=== PATIENT | female | born 1995 | race Caucasian/White ===

== ENCOUNTER 2019-05-16 00:31 | Inpatient (IN) | payer SELFPAY ==
[~2019-05-16] VITALS: Ht 152.4 cm; Wt 81.0 kg
[2019-05-16] VITALS (303 sets, daily range): BP systolic 94–115; BP diastolic 51–72; PULSE 63–74; TEMP 97–98.9; O2SAT 95–100
[2019-05-16 01:03] LABS: BASO % 0.3 % (0.0-2.0); EOS % 0.3 % (0-4.0); GRAN # 8.5 (1.4-6.5); GRAN % 65.9 % (42.2-75.2); HEMATOCRIT 38.1 % (37.0-47.0); HEMOGLOBIN 12.4 g/dl (12.5-16.0); LYMPH # 3.1 (1.2-3.4); LYMPH % 24.4 % (20.0-51.0); MEAN CELL VOLUME 90 fl (80.0-100.0); MEAN CORPUSCULAR HEMOGLOBIN 29 pg (27.0-31.0); MEAN CORPUSCULAR HGB CONC 33 g/dl (33.0-37.0); MEAN PLATELET VOLUME 10.9 fl (7.4-10.4); MONO # 1.1 (0.1-0.6); MONO % 8.7 % (1.7-9.3); PLATELET COUNT 278 K/mm3 (130-400); RED BLOOD COUNT 4.23 M/mm3 (4.10-5.30); REDCELL DISTRIBUTION WIDTH-CV 12.7 % (11.5-14.5)
[2019-05-16 01:17] LABS: ALBUMIN 4.2 gm/dL (3.5-5.0); BILIRUBIN,TOTAL 0.4 mg/dL (0.0-1.0); C-REACTIVE PROTEIN 1.3 mg/dL (0.0-0.9); CALCIUM 8.7 mg/dL (8.4-10.2); CREATININE, serum 0.62 (0.52-1.25); TOTAL PROTEIN 8.2 gm/dL (6.4-8.2)
--- NOTE | 2019-05-16 03:14 | NUR ---
Racemic Epi nebulizer discontinued after 2.5 minutes due to bilateral leg tremors and increasing heart rate. Pt states that she feels the treatment may have made a slight improvement in the amount of air she is getting. Cool mist humidifier via face tent on RA applied following neb.
--- NOTE | 2019-05-16 03:54 | NUR ---
0241 - REPORT RECEIVED FROM WILMAN COLON. 0250 - PT ARRIVED IN UNIT VIA STRETCHER, ABLE TO TRANSFER SELF TO BED INDEPENDENTLY. PT ALERT AND ORIENTED X 4, AUDIBLE STRIDOR FROM THROAT COULD BE HEARD, LUNGS ARE CLEAR, DENIES ANY PAIN AT THIS TIME AND VSS. NOREEN AT BEDSIDE, ORIENTED TO VISITATION POLICY AND VERBALIZED UNDERSTANDING. ALL QUESTIONS ANSWERED.
--- NOTE | 2019-05-16 03:57 | NUR ---
Improvement in stridor noted at this time; approx 20 min after cool mist face tent applied. Pt states she feels a difference as well and asks to lay back to rest. Call light is within reach. RN notified.
--- NOTE | 2019-05-16 07:44 | NUR ---
Report received from Linn STOVALL and care resumed.
--- NOTE | 2019-05-16 10:39 | NUR ---
[employer] student met with the patient to complete initial intake. The patient lives in [place] with her , Brian. The patient denies DME usage and reports indepenence with ADLs. The patient reports she will set-up her PCP at [place] and patient receives medications from [facility]. The patient does not have advanced directives in the EMR but was interested in DPOA-HC form. Form provided. The patient plans to return home upon discharge. There at no additional needs at this time.
[2019-05-16 12:24] LABS: BASO % 0.1 % (0.0-2.0); GRAN # 9.6 (1.4-6.5); GRAN % 87.8 % (42.2-75.2); HEMATOCRIT 38.4 % (37.0-47.0); HEMOGLOBIN 12.4 g/dl (12.5-16.0); LYMPH # 1.2 (1.2-3.4); LYMPH % 10.7 % (20.0-51.0); MEAN CELL VOLUME 91 fl (80.0-100.0); MEAN CORPUSCULAR HEMOGLOBIN 29 pg (27.0-31.0); MEAN CORPUSCULAR HGB CONC 32 g/dl (33.0-37.0); MONO # 0.1 (0.1-0.6); MONO % 1.1 % (1.7-9.3); PLATELET COUNT 306 K/mm3 (130-400); RED BLOOD COUNT 4.23 M/mm3 (4.10-5.30); REDCELL DISTRIBUTION WIDTH-CV 12.8 % (11.5-14.5)
[2019-05-16 12:30] LABS: ALBUMIN 4.1 gm/dL (3.5-5.0); BILIRUBIN,TOTAL 0.5 mg/dL (0.0-1.0); CALCIUM 8.9 mg/dL (8.4-10.2); CREATININE, serum 0.5 (0.52-1.25); POTASSIUM 4.3 mmol/L (3.4-5.0); TOTAL PROTEIN 8.3 gm/dL (6.4-8.2)
--- NOTE | 2019-05-16 13:52 | NUR ---
Report given to Chandan STOVALL and care transfered.
[2019-05-16] MEDS ORDERED: PREDNISONE20 MG PO (16:08)
== END 2019-05-16 17:00 | disposition home or self-care (01) | DRG 153 ==
LOC: COL.ER 00:31 → IMCU 01:42 → ICU 02:16
PROVIDERS: Nurse Practitioner; Physician Assistant; ADMIT Hospitalist
DX: J05.10 Acute epiglottitis without obstruction (principal); E87.6 Hypokalemia; R74.8 Abnormal levels of other serum enzymes
CPT/HCPCS: A4216; J0696; J1100; J3480; J7030

== ENCOUNTER 2021-01-26 17:39 | Emergency (ER) | payer OTHER ==
[~2021-01-26] VITALS: Ht 162.6 cm; Wt 84.1 kg
[~2021-01-26 17:39] MED LIST: PREDNISONE20 MG PO
[2021-01-26 17:52] VITALS: TEMP 98.8
[2021-01-26 20:05] VITALS: BP 123/79; PULSE 87
== END 2021-01-26 20:05 | disposition home or self-care (01) ==
LOC: COL.ER 17:39
DX: B34.9 Viral infection, unspecified (principal); Z20.822 Contact with and (suspected) exposure to COVID-19